=== PATIENT | male | born 1970 ===

== ENCOUNTER 2016-09-14 11:57 | Emergency (ER) | payer OTHER ==
[2016-09-14 12:21] VITALS: O2SAT 98
[2016-09-14] MEDS ORDERED: Sodium Chloride 0.9% 1,000 ML IV STA (12:25)
--- NOTE | 2016-09-14 12:27 | ED PDOC ---
Hyperglycemia/Hypoglycemia Time Seen by Provider: 09/14/16 12:18 Chief Complaint (Nursing): High Blood Sugar Chief Complaint (Provider): high blood sugar History Per: Patient History/Exam Limitations: no limitations Onset/Duration Of Symptoms: Days (x 3) : The patient does not have any of the infectious symptoms listed except for those marked. Additional Complaint(s): Jose Calles is a 46 year old male, with a previous medical history of hypertension and diabetes, who presents to the ED for the evaluation of high blood sugar for 3 days associated with light headedness. Patient denies any nausea or vomiting. He reports taking metphormin 500 mg BID with no changes in his diet. PMD:none provided Past Medical History Reviewed: Historical Data, Nursing Documentation, Vital Signs Vital Signs: Last Vital Signs Temp Pulse Resp BP 135/60 09/14/16 12:19 Pulse Ox 98 09/14/16 12:19 - Medical History PMH: Diabetes, HTN - Family History Family History: States: Unknown Family Hx - Allergies Allergies/Adverse Reactions: Allergies Allergy/AdvReac Type Severity Reaction Status Date / Time No Known Allergies Allergy Verified 09/14/16 12:19 Review of Systems ROS Statement: Except As Marked, All Systems Reviewed And Found Negative Gastrointestinal: Negative for: Nausea, Vomiting Neurological: Positive for: Other (light headedness) Physical Exam - Reviewed Nursing Documentation Reviewed: Yes Vital Signs Reviewed: Yes - Physical Exam Appears: Positive for: Well, Non-toxic, No Acute Distress Head Exam: Positive for: ATRAUMATIC, NORMAL INSPECTION, NORMOCEPHALIC Skin: Positive for: Normal Color, Warm, Dry Eye Exam: Positive for: Normal appearance, EOMI, PERRL ENT: Positive for: Normal ENT Inspection Neck: Positive for: Normal, Painless ROM Cardiovascular/Chest: Positive for: Regular Rate, Rhythm Respiratory: Positive for: CNT, Normal Breath Sounds Gastrointestinal/Abdominal: Positive for: Normal Exam, Bowel Sounds, Soft. Negative for: Tenderness Back: Positive for: Normal Inspection Extremity: Positive for: Normal ROM Neurologic/Psych: Positive for: Alert - Laboratory Results Result Diagrams: 09/14/16 13:13 09/14/16 13:13 - ECG O2 Sat by Pulse Oximetry: 98 (RA) Pulse Ox Interpretation: Normal Medical Decision Making Medical Decision Making: Initial Plan: * IV NS 1,000 ml at 250 ml/hr * labs * reevaluation Scribe Attestation: Documented by Veronica Fernandez, acting as a scribe for Juan Elizalde MD. Provider Scribe Attestation: All medical record entries made by the Scribe were at my direction and personally dictated by me. I have reviewed the chart and agree that the record accurately reflects my personal performance of the history, physical exam, medical decision making, and the department course for this patient. I have also personally directed, reviewed, and agree with the discharge instructions and disposition. Disposition - Clinical Impression Clinical Impression: Hyperglycemia - Patient ED Disposition Is Patient to be Admitted: No Counseled Patient/Family Regarding: Studies Performed, Diagnosis, Need For Followup, Rx Given - Disposition Referrals: [facility] [Outside] Disposition: Routine/Home Disposition Time: 16:38 Condition: FAIR Instructions: Diabetic Hyperglycemia (ED)
[2016-09-14 13:26] LABS: BASO % 0.4 % (0.0-2.0); EOS # 0.2 K/uL (0.0-0.7); EOS % 1.8 % (0.0-4.0); HEMOGLOBIN 14.6 g/dL (12.0-18.0); LYMPH # 1.6 K/uL (1.0-4.3); LYMPH % 18.7 % (20.0-40.0); MEAN CELL VOLUME 87.7 fl (80.0-94.0); MEAN CORPUSCULAR HEMOGLOBIN 29.8 pg (27.0-31.0); MEAN CORPUSCULAR HGB CONC 33.9 g/dL (33.0-37.0); MEAN PLATELET VOLUME 8.2 fl (7.2-11.7); MONO # 0.6 K/uL (0.0-0.8); MONO % 6.7 % (0.0-10.0); NEUT # 6.2 K/uL (1.8-7.0); NEUT % 72.4 % (50.0-75.0); NRBC % 0.1 % (0.0-0.0); RBC 4.91 Mil/uL (4.40-5.90); RED CELL DISTRIBUTION WIDTH 13.5 % (11.5-14.5); WHITE BLOOD COUNT 8.6 K/uL (4.8-10.8)
[2016-09-14 13:38] LABS: ALB/GLOB RATIO 1.5 (1.0-2.1); ALBUMIN 3.9 g/dL (3.5-5.0); ALT/SGPT 69 U/L (21-72); AST/SGOT 53 U/L (17-59); BLOOD UREA NITROGEN 14 mg/dl (9-20); CALCIUM 9.5 mg/dL (8.4-10.2); GFR AFRICAN-AMERICAN > 60; GFR NON-AFRICAN AMERICAN > 60
[2016-09-14] MEDS ORDERED: Insulin Regular 100 units/ml SC STA (13:39)
[2016-09-14] MEDS ORDERED: Insulin Regular 100 units/ml ONE (14:53)
[2016-09-14 19:45] VITALS: BP 116/85; PULSE 75; RESP 16; TEMP 98
== END 2016-09-14 16:00 | disposition home or self-care (01) ==
LOC: H.ER 11:57
DX: E11.65 Type 2 diabetes mellitus with hyperglycemia (principal); I10 Essential (primary) hypertension

== ENCOUNTER 2017-08-10 10:05 | Emergency (ER) | payer OTHER ==
[2017-08-10 10:09] VITALS: BMI 25.9
[2017-08-10] MEDS ORDERED: Sodium Chloride 0.9% 1,000 ML IV STA (10:29)
--- NOTE | 2017-08-10 10:36 | ED PDOC ---
HPI: Abdomen Time Seen by Provider: 08/10/17 10:15 Chief Complaint (Nursing): GI Problem Chief Complaint (Provider): Left flank pain History Per: Patient History/Exam Limitations: no limitations Onset/Duration Of Symptoms: Days (x5) Current Symptoms Are (Timing): Still Present Associated Symptoms: Nausea, Vomiting, Urinary Symptoms. denies: Fever, Chills , Diarrhea Additional Complaint(s): 47 year old male, with a past medical history of diabetes, presented to the ED complaining of left flank pain with onset of 5 days. Patient reports he had kidney stones 7-8 months ago but pain is not similar to his current pain. He indicates he has dysuria, nausea, vomiting (with more than 10 episodes since Sunday), cough, and dizziness. He denies SOB, fever, chills, diarrhea, abdominal pain, sick contacts, and LOC. He states his blood sugar has been high for the past 3 days. PCP: Dr. Holley Past Medical History Reviewed: Historical Data, Nursing Documentation, Vital Signs Vital Signs: Last Vital Signs Temp 97.7 F 08/10/17 10:11 Pulse 78 08/10/17 13:22 Resp 19 08/10/17 13:22 BP 134/77 08/10/17 13:22 Pulse Ox 98 08/10/17 13:22 - Medical History PMH: Diabetes, HTN, Hypercholesterolemia - Family History Family History: States: Unknown Family Hx - Social History Current smoker - smoking cessation education provided: No Ex-Smoker (has not smoked in the last 12 months): Yes Alcohol: Social Drugs: Denies - Allergies Allergies/Adverse Reactions: Allergies Allergy/AdvReac Type Severity Reaction Status Date / Time No Known Allergies Allergy Verified 09/14/16 12:19 Review of Systems ROS Statement: Except As Marked, All Systems Reviewed And Found Negative Constitutional: Negative for: Fever, Chills Respiratory: Positive for: Cough. Negative for: Shortness of Breath Gastrointestinal: Positive for: Nausea, Vomiting. Negative for: Abdominal Pain , Diarrhea Genitourinary Male: Positive for: Dysuria Musculoskeletal: Positive for: Other (Left flank pain) Neurological: Positive for: Dizziness. Negative for: Other (LOC) Physical Exam - Reviewed Nursing Documentation Reviewed: Yes Vital Signs Reviewed: Yes - Physical Exam Appears: Positive for: Non-toxic, No Acute Distress Head Exam: Positive for: ATRAUMATIC, NORMOCEPHALIC Skin: Positive for: Normal Color, Warm, Dry Eye Exam: Positive for: Normal appearance, EOMI, PERRL ENT: Positive for: Normal ENT Inspection Neck: Positive for: Normal, Painless ROM Cardiovascular/Chest: Positive for: Regular Rate, Rhythm. Negative for: Murmur Respiratory: Positive for: Normal Breath Sounds. Negative for: Wheezing, Respiratory Distress Gastrointestinal/Abdominal: Positive for: Normal Exam, Bowel Sounds (normal in all 4 quadrants), Soft. Negative for: Tenderness Back: Positive for: Normal Inspection. Negative for: L CVA Tenderness, R CVA Tenderness, Vertebral Tenderness Extremity: Positive for: Normal ROM. Negative for: Pedal Edema, Swelling Neurologic/Psych: Positive for: Alert, Oriented. Negative for: Motor/Sensory Deficits - Laboratory Results Result Diagrams: 08/10/17 10:41 08/10/17 10:41 - ECG O2 Sat by Pulse Oximetry: 99 (RA) Pulse Ox Interpretation: Normal - Progress Condition: Improved Medical Decision Making Medical Decision Making: Initial Impression: left flank pain Initial Plan: VBG shock panel CMP Lipase ED urine dipstick CBC Pepcid 20mg IV Sodium chloride 1000mL Zofran 4mg IV Glucose Scribe Attestation: Documented by Kit Phillips acting as a scribe for Kasia Moore MD. Provider Scribe Attestation: All medical record entries made by the Scribe were at my direction and personally dictated by me. I have reviewed the chart and agree that the record accurately reflects my personal performance of the history, physical exam, medical decision making, and the department course for this patient. I have also personally directed, reviewed, and agree with the discharge instructions and disposition. 2.00p - patient stable. No complaints. Feeling better. Disposition - Clinical Impression Clinical Impression: Diabetes mellitus - Patient ED Disposition Is Patient to be Admitted: No Doctor Will See Patient In The: Office Counseled Patient/Family Regarding: Diagnosis, Need For Followup, Rx Given - Disposition Referrals: David Holley [Family Provider] - [facility] [Outside] Disposition: Routine/Home Disposition Time: 14:14 Condition: IMPROVED Instructions: Type 2 Diabetes Forms: [employer] (Syriac) - POA Present On Arrival: None
[2017-08-10 10:46] LABS: BASO # 0.1 K/uL (0.0-0.2); EOS # 0.3 K/uL (0.0-0.7); HEMOGLOBIN 14.3 g/dL (12.0-18.0); LYMPH # 1.4 K/uL (1.0-4.3); LYMPH % 25.4 % (20.0-40.0); MEAN CELL VOLUME 87.9 fl (80.0-94.0); MEAN CORPUSCULAR HEMOGLOBIN 29.8 pg (27.0-31.0); MEAN CORPUSCULAR HGB CONC 33.9 g/dL (33.0-37.0); MEAN PLATELET VOLUME 8.1 fl (7.2-11.7); MONO # 0.4 K/uL (0.0-0.8); MONO % 6.8 % (0.0-10.0); NEUT # 3.3 K/uL (1.8-7.0); NEUT % 60.8 % (50.0-75.0); NRBC % 0.1 % (0.0-0.0); RBC 4.79 Mil/uL (4.40-5.90); RED CELL DISTRIBUTION WIDTH 13.3 % (11.5-14.5); WHITE BLOOD COUNT 5.5 K/uL (4.8-10.8)
[2017-08-10] MEDS ORDERED: Famotidine 20mg/50ml 20 MG/50 ML BAG IVPB ONE (10:50)
[2017-08-10 10:58] LABS: VENOUS BLOOD GAS BASE EXCESS 5.6 mmol/L (0.0-2.0); VENOUS BLOOD GAS PCO2 53 mmHg (40-60); VENOUS BLOOD GAS PO2 27 mm/Hg (30-55); VENOUS BLOOD PH 7.39 (7.32-7.43)
[2017-08-10 11:05] LABS: ALB/GLOB RATIO 1.2 (1.0-2.1); CALCIUM 9.1 mg/dL (8.4-10.2); GFR AFRICAN-AMERICAN > 60; GFR NON-AFRICAN AMERICAN > 60; LIPASE 169 U/L (23-300)
[2017-08-10 11:11] LABS: ALT/SGPT 50 U/L (21-72); AST/SGOT 41 U/L (17-59); BLOOD UREA NITROGEN 10 mg/dl (9-20)
[2017-08-10 13:23] VITALS: PULSE 78; RESP 19
[2017-08-10 14:29] VITALS: BP 126/78; TEMP 97; O2SAT 98
== END 2017-08-10 14:29 | disposition home or self-care (01) ==
LOC: H.ER 10:05
DX: E11.9 Type 2 diabetes mellitus without complications (principal); Z87.891 Personal history of nicotine dependence; I10 Essential (primary) hypertension; E78.00 Pure hypercholesterolemia, unspecified; Z87.442 Personal history of urinary calculi
CPT/HCPCS: 80053; 82803; 82948; 83036; 83690; 85025; 96374; 99283; J2405; J7030